=== PATIENT | female | born 1955 | race Caucasian/White ===

== ENCOUNTER 2016-10-11 12:20 | Inpatient (IN) | payer BC, OTHER ==
--- NOTE | ~2016-10-11 | DS ---
Discharge Summary [facility] [address] [place]. [address] NAME: JULI HASTINGS : 51 STATUS : DIS IN PAT#: [id number] AGE: 60 ADM/REG DATE : 10/11/16 MR#: [id number] REPORT SERV DATE: 10/14/16 DICTATED BY: MANDEEP GOMEZ II DATE: 10/14/16 REPORT STATUS : Draft TRANSCRIBED BY: MODCarrie DATE: 10/14/16 ADMISSION DATE: 10/11/2016 DISCHARGE DATE: 10/14/2016 DISCHARGE DIAGNOSES: 1. Acute encephalopathy, likely narcotic overdose. 2. Chronic pain, on chronic opiates and benzodiazepines. 3. Hepatitis C, cirrhosis. 4. Chronic obstructive pulmonary disease. 5. Chronic bilateral lower extremity lymphedema. CONSULT: Dr. Agudelo, Palliative Care. BRIEF HISTORY OF PRESENT ILLNESS: The patient is a 60-year-old female with a past history as well as anxiety, depression, PTSD, and fibromyalgia who presented to [facility] with altered mental status, likely representing narcotic overdose. For detailed history and physical examination, please see Dr. Art' note from 10/11/2016. HOSPITAL COURSE: After admission, her narcotics were withheld and her mental status improved. Infectious workup was unremarkable. Chest x-ray was normal. Urinalysis was normal. CT of the head was unremarkable. Her ammonia was slightly high at 52 with total bilirubin of 1.1, ALT 22, and AST 47. She was given lactulose and rifaximin with good response. No other source of encephalopathy was discovered. Given the patient's hepatitis C, Dr. Agudelo was consulted. The patient has been recommended hospice before and this time after discussing with Dr. Agudelo, the patient wanted to go home with hospice. She has a friend who is with her and she is going to go live with her. At this point in time, the patient is stable and ready to be discharged home with hospice. DISCHARGE MEDICATIONS: Per hospice. RAYMUNDO/KATHY Mandeep Gomez II, MD / [id number] CC: MD Willy Maxwell IIws, DO
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
--- NOTE | ~2016-10-11 | HP ---
History And Physical [address] [place]. [address] NAME: JULI HASTINGS : 51 STATUS : ADM IN [facility]#: [id number] AGE: 60 ADM/REG DATE : 10/11/16 MR#: [id number] REPORT SERV DATE: 10/11/16 DICTATED BY: RUBINA BLACK DATE: 10/11/16 REPORT STATUS : Draft TRANSCRIBED BY: MODL DATE: 10/11/16 DATE OF ADMISSION: 10/11/2016 CHIEF COMPLAINT: None. HISTORY OF PRESENT ILLNESS: The patient is a 60-year-old white female with a history of cirrhosis, chronic pain on chronic narcotics with previous history of narcotic overdose, and encephalopathy, presents today basically unresponsive, cannot provide any history. Apparently had a fall and has some redness on her legs. A friend called EMS and she was brought to the hospital. There is no other history available. No family is available. I attempted to call a friend via cellphone. Her number has been disconnected. Apparently the patient suffers from cirrhosis and hepatitis C, and at one time, was considered for hospice but refused. She comes in today with redness of her lower extremities and per the ER report, she was less responsive. PAST MEDICAL HISTORY: 1. COPD. 2. Hepatitis C. 3. Cirrhosis. 4. Fibromyalgia. 5. Chronic pain. 6. Depression. 7. Anxiety. 8. PTSD. 9. Peptic ulcer disease. 10.Hyponatremia. 11.Narcotic overdose and encephalopathy as well as benzodiazepine overdose and encephalopathy. HOME MEDICATIONS: Reviewed and attached. SOCIAL HISTORY: Her significant other recently about three weeks ago. Apparently, she smokes one-half pack per day. She does not use any alcohol or any drug. She is disabled. FAMILY HISTORY: Positive for heart disease. PAST SURGICAL HISTORY: 1. She has had a hysterectomy. 2. Left-sided hand abscess debridement. 3. . 4. foot surgery. ALLERGIES: PROPOXYPHENE AND METHADONE. REVIEW OF SYSTEMS: Unobtainable. History And Physical [address] [place]. [address] NAME: JULI HASTINGSETTE : 51 STATUS : ADM IN PAT#: [id number] AGE: 60 ADM/REG DATE : 10/11/16 MR#: [id number] REPORT SERV DATE: 10/11/16 DICTATED BY: RUBINA BLACK DATE: 10/11/16 REPORT STATUS : Draft TRANSCRIBED BY: KATHY DATE: 10/11/16 PHYSICAL EXAMINATION: VITAL SIGNS: Initially she was normotensive, then she dropped her pressure to the 70s and 80s systolic. Upon my arrival where they were instructed to give Narcan, her pressure immediately dae. She had already had a central line in place. She is now 115/74 with a pulse in the 90s, sats are 96%, respiratory rate 25, and her temperature is 98.2 . GENERAL: Well-developed white female, older than her stated age. HEENT: Normocephalic, atraumatic. Pupils are reactive and responsive. NECK: Supple. HEART: Regular rate and rhythm. LUNGS: Grossly clear. She has an occasional very end expiratory wheeze. ABDOMEN: Soft. She does not have extensive ascites or distention. EXTREMITIES: Her extremities are red diffusely from about the ankle to just above her knee caps bilaterally. She has excoriations about her knees and anterior tibia as if she has had a fall. The redness is quite extensive and there is also warmth and swelling to about 2+ pitting edema in both legs. She does have signals in her feet which were easily found by nurse in the room. NEUROLOGIC: She appears to move all four extremities. When she was given Narcan, she awoke. She is not speaking but she follows commands and she says yes or no to questions which is much more alert than she was prior since receiving the Narcan, she is much improved. LAB AND X-RAY: Urinalysis is negative. Chest x-ray shows no obvious infiltrate. Central line is in place. ABG 7.50/31/67. Sodium 144, potassium 4, chloride 110, CO2 of 24, BUN and creatinine 22 and 1.04. Glucose is 95. LFTs are normal other than an albumin of 2.3. Lipase is 139. AST and ALT are normal. Lactate is 0.9. Ammonia is 77. H and H 12.9 and 37, white count is 6.2, platelets 110, coags are pending. EKG shows sinus rhythm with no acute ST-T wave changes, that is a followup EKG; the initial EKG had a lot of artifact as she was shaking and moving about. She is now calm. ASSESSMENT/PLAN: 1. Acute encephalopathy. I suspect it is multifactorial. The largest contributor, I suspect, is narcotics and benzodiazepine. She had quite a response to Narcan. She is not following commands and basically responding with aa aa and aha aha with yes and no to questions when prompted. She will not open her eyes but she is responding and following commands which is improved. I think it is reasonable to hold her narcotics and benzos. We will provide p.r.n. Narcan. I am also going to treat her hepatic encephalopathy since she has an elevated ammonia. We will give her a lactulose retention enema. Hopefully she will waken enough to take p.o. with the next dose. We will hold all p.o. medications for now until she is awake and alert. 2. Cellulitis of the lower extremities versus DVTs. She does have excoriations and redness consistent with some cellulitis. I am going to give her some Ancef IV q.8 hours. We will also do bilateral duplex ultrasonography of the leg to rule out DVT and go from there. 3. Cirrhosis with hepatitis C. I am going to have to hold her medications that she is currently n.p.o. as she is not awake enough to take them when she wakes. We will go History And Physical [address] [address] NAME: JULI HASTINGS : 51 STATUS : ADM IN PAT#: [id number] AGE: 60 ADM/REG DATE : 10/11/16 MR#: [id number] REPORT SERV DATE: 10/11/16 DICTATED BY: RUBINA BLACK DATE: 10/11/16 REPORT STATUS : Draft TRANSCRIBED BY: KATHY DATE: 10/11/16 ahead and give her Aldactone as well as her Lasix if her blood pressure will tolerate it as she is quite edematous. 4. Chronic pain on chronic narcotics. She needs more judicious use of narcotics. This will need to be communicated to her Pain Management doctor, but unfortunately, I do not know who that is at this point. 5. History of hyponatremia. Sodium looks good today. 6. Deep venous thrombosis prophylaxis with subcutaneous heparin. 7. Disposition pending above aforementioned plan and workup. BIB/KATHY Rubina Black M.D. / [id number] CC: Sue Cummings III, M.D. John Muller, M.D.
[2016-10-11 11:33] LABS: BASOPHILS 0.3 %; BASOPHILS ABSOLUTE 0.02 10/3/uL (0.0-0.16); EOSINOPHILS 0.6 %; EOSINOPHILS ABSOLUTE 0.04 10/3/uL (0.0-0.53); ER CBC TAT 0 Hrs 08 Mins; HEMOGLOBIN 12.9 g/dL (12.0-16.0); IMMATURE GRANULOCYTES 0.3 %; IMMATURE GRANULOCYTES ABSOLUTE 0.02 10/3/uL (0.0-0.11); LYMPHOCYTES 16.2 %; LYMPHOCYTES ABSOLUTE 1.01 10/3/uL (0.67-4.30); MEAN CORPUS HGB CONC 34.5 g/dL (32.0-36.0); MEAN CORPUSCULAR HEMOGLOB 33.9 pg (26.0-34.0); MEAN PLATELET VOLUME 10.7 fL (9.2-13.0); MONOCYTES ABSOLUTE 0.81 10/3/uL (0.21-1.20); NEUTROPHILS 69.6 %; NEUTROPHILS ABSOLUTE 4.32 10/3/uL (2.02-8.40); RBC DISTRIBUTION WIDTH 15.3 % (12.0-16.0); WHITE BLOOD CELLS 6.2 10/3/uL (4.5-10.5)
[2016-10-11 11:34] LABS: HEMATOCRIT 37.4 % (36.0-48.0); MANUAL DIFF NO %; MEAN CORPUSCULAR VOLUME 98.4 fL (80-100); PLATELET COUNT 110 10/3/uL (150-400)
[~2016-10-11 12:20] MED LIST: *UNABLE2; AMB5 PO; AVINZA60 PO; CEFAZ1 IV; CIPRO PO; CLEOCIN300 MG PO; CONSTULOSE PO; ENDOCET1 TAB PO; KDUR20 PO; KEFLEX PO; KLOR-CON M2020 MEQ PO; L20 PO; L40 PO; LACT30UDL PO; LIOR10 PO; LISINOPRIL PO; LISINOPRIL40 MG PO; MACROBID PO; MEDROLPAK4 PO; MORPHINE 15MG PO; MSCONT15 PO; MSCONT60 PO; MSCONTIN PO; MULTIVITAMI1 PO; NAFCILLIN10 GM IV; NASAL SPRAY NAS; NORV5 PO; OXYCOD PO; OXYIR5 MG PO; PCET PO; PREM625 PO; PREMARIN PO; PRILOSEC40 MG PO; PRIN20 PO; PROTONIX PO; RHINOAQ NAS; SPIR100 PO; SPIRO50 PO; XANAX1 MG PO; XIFAXAN550 MG PO; ZANAFLEX 4 MG TA4 MG PO; ZOL100 PO
[2016-10-11 12:24] LABS: SGOT(AST) 47 U/L (5-40); SODIUM, SERUM 144 MMOL/L (135-148)
[2016-10-11 12:40] LABS: A/G RATIO 0.8 (0.7-1.9); ALBUMIN 2.3 G/DL (3.5-5.0); BUN (BLOOD UREA NITROGEN) 22 MG/DL (6-23); CALCIUM, SERUM 8.1 MG/DL (8.5-10.4); CHLORIDE, SERUM 110 MMOL/L (96-112); CO2 (CARBON DIOXIDE) 24 MMOL/L (24-34); CREATININE 1.04 MG/DL (0.55-1.02); GFR AFRICAN AMERICAN 67 ML/MIN (>=60); GFR NON AFRICAN AMERICAN 58 ML/MIN (>=60); GLOBULIN 2.9 G/DL (2.5-4.1); GLUCOSE, SERUM 95 MG/DL (60-99); TOTAL PROTEIN 5.2 G/DL (6.0-8.5)
[2016-10-11 12:41] LABS: ALKALINE PHOSPHATASE 88 U/L (45-117); SGPT(ALT) 22 U/L (5-65); TOTAL BILIRUBIN 1.1 MG/DL (0-1.2)
[2016-10-11 13:40] LABS: BE (BASE EXCESS) 1.5 MEQ/L (0 +/- 2.5); CARBOXYHEMOGLOBIN 1.5 % (0-3); HCO3 (ACTUAL BICARBONATE) 23.9 MEQ/L (23-27); HEMOBLOGIN CONTENT 13.2 G/DL (12-16); INSTRUMENT SERIAL # 8087; METHEMOGLOBIN 0.4 % (0-3); O2 CONTENT 17.2 VOL% (18-24); PCO2 (CO2 TENSION) 31 MMHG (35-45); PO2 (O2 TENSION) 67 MMHG (79-93); SAMPLE Arterial
[2016-10-11 13:59] LABS: WBC (NOT ORDERED) (RFLEX) 0 (0-5)
[2016-10-11 14:24] LABS: ASCORBIC ACID (UR NOT ORDER) NEG (NEG); BILIRUBIN, URINE NEGATIVE (NEG); ER URINALYSIS TAT 0 Hrs 25 Mins; KETONE, URINE NEGATIVE (NEG); LEUKOCYTE ESTERASE(NOT OR NEG (NEG); NITRITE (URINE) NEG (NEG)
[2016-10-11 14:31] LABS: AMPHETAMINES (NOT ORD) NEG (NEG); BARBITURATES (NOT ORDERED NEG (NEG); CANNABINOIDS (THC) NEG (NEG); COCAINE (NOT ORDERED) NEG (NEG); OPIATES POS (NEG); PHENCYCLIDINE(PCP) NEG (NEG)
[2016-10-11 14:32] LABS: BENZODIAZEPINES (NOT ORD) POS (NEG); TRICYCLICS NEG (NEG)
[2016-10-11 18:45] LABS: PROCALCITONIN <0.05 ng/mL (<0.5)
[2016-10-11 19:19] LABS: INTERNATIONAL NORMAL RATI 1.3 UNITS (-); PROTIME (NOT ORD) 16.3 SEC (12.0-14.5)
[2016-10-12 04:50] LABS: BASOPHILS 0.2 %; BASOPHILS ABSOLUTE 0.01 10/3/uL (0.0-0.16); EOSINOPHILS 1.8 %; HEMATOCRIT 33.7 % (36.0-48.0); HEMOGLOBIN 11.2 g/dL (12.0-16.0); IMMATURE GRANULOCYTES 0.2 %; IMMATURE GRANULOCYTES ABSOLUTE 0.01 10/3/uL (0.0-0.11); LYMPHOCYTES 19.7 %; LYMPHOCYTES ABSOLUTE 1.12 10/3/uL (0.67-4.30); MEAN CORPUS HGB CONC 33.2 g/dL (32.0-36.0); MEAN CORPUSCULAR HEMOGLOB 32.5 pg (26.0-34.0); MEAN CORPUSCULAR VOLUME 97.7 fL (80-100); MEAN PLATELET VOLUME 11.1 fL (9.2-13.0); MONOCYTES 16.9 %; MONOCYTES ABSOLUTE 0.96 10/3/uL (0.21-1.20); NEUTROPHILS 61.2 %; NEUTROPHILS ABSOLUTE 3.49 10/3/uL (2.02-8.40); PLATELET COUNT 107 10/3/uL (150-400); RBC DISTRIBUTION WIDTH 15.6 % (12.0-16.0); RED CELL COUNT 3.45 10/6/uL (4.0-5.6); WHITE BLOOD CELLS 5.7 10/3/uL (4.5-10.5)
[2016-10-12 04:53] LABS: MANUAL DIFF NO %
[2016-10-12 05:02] LABS: A/G RATIO 0.7 (0.7-1.9); ALBUMIN 2.2 G/DL (3.5-5.0); ALKALINE PHOSPHATASE 90 U/L (45-117); CHLORIDE, SERUM 110 MMOL/L (96-112); CO2 (CARBON DIOXIDE) 26 MMOL/L (24-34); CREATININE 0.95 MG/DL (0.55-1.02); GFR AFRICAN AMERICAN 74 ML/MIN (>=60); GFR NON AFRICAN AMERICAN 64 ML/MIN (>=60); GLOBULIN 3.1 G/DL (2.5-4.1); GLUCOSE, SERUM 80 MG/DL (60-99); POTASSIUM, SERUM 3.7 MMOL/L (3.5-5.3); SGOT(AST) 46 U/L (5-40); SGPT(ALT) 22 U/L (5-65); SODIUM, SERUM 145 MMOL/L (135-148); TOTAL PROTEIN 5.3 G/DL (6.0-8.5)
[2016-10-12 05:03] LABS: BUN (BLOOD UREA NITROGEN) 18 MG/DL (6-23)
[2016-10-13 06:14] LABS: CHLORIDE, SERUM 107 MMOL/L (96-112); CO2 (CARBON DIOXIDE) 25 MMOL/L (24-34); CREATININE 0.97 MG/DL (0.55-1.02); GFR AFRICAN AMERICAN 73 ML/MIN (>=60); GFR NON AFRICAN AMERICAN 63 ML/MIN (>=60); GLUCOSE, SERUM 85 MG/DL (60-99); POTASSIUM, SERUM 3.5 MMOL/L (3.5-5.3); SODIUM, SERUM 142 MMOL/L (135-148)
[2016-10-13 06:19] LABS: BUN (BLOOD UREA NITROGEN) 13 MG/DL (6-23); CALCIUM, SERUM 9.1 MG/DL (8.5-10.4)
== END 2016-10-14 16:01 | disposition home or self-care (01) | DRG 917 ==
LOC: ER 12:20 → ER/OF 14:13 → IMCU 14:44 → 6NO 10-12 14:49
PROVIDERS: Emergency Medicine; Internal Medicine
DX: T40.2X1A Poisoning by other opioids, accidental (unintentional), initial encounter (principal); G92 Toxic encephalopathy; R18.8 Other ascites; K74.60 Unspecified cirrhosis of liver; Z51.5 Encounter for palliative care; Z79.891 Long term (current) use of opiate analgesic; B19.20 Unspecified viral hepatitis C without hepatic coma; J44.9 Chronic obstructive pulmonary disease, unspecified; I89.0 Lymphedema, not elsewhere classified; F41.9 Anxiety disorder, unspecified; F32.9 Major depressive disorder, single episode, unspecified; F43.10 Post-traumatic stress disorder, unspecified; M79.7 Fibromyalgia; F17.210 Nicotine dependence, cigarettes, uncomplicated; G89.29 Other chronic pain; Z86.14 Personal history of Methicillin resistant Staphylococcus aureus infection; Z87.11 Personal history of peptic ulcer disease
CPT/HCPCS: 36600; 70450; 71010; 80048; 80053; 80305; 81001; 82140; 82805; 83605; 83690; 84145; 85025; 85610; 85730; 87040; 87641; 93005; 93970; 96365; 96367; 99291; A9270-GY; J0690; J2310; J2543; J3411